=== PATIENT | male | born 1995 | race Caucasian/White ===

== ENCOUNTER 2017-10-06 18:15 | Emergency (ER) | payer OTHER, SELFPAY ==
[2017-10-06 18:17] VITALS: BP 121/89; PULSE 82; RESP 17; TEMP 37.1; O2SAT 100; BMI 24.5
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
[2017-10-06] MEDS: HYDROcodone Bitartrate/Apap 5/325 Tablet PO ×2 (19:39→21:51)
--- NOTE | 2017-10-06 21:06 | ED.RN ---
Addendum entered by Jonh Peralta 10/06/17 21:14: disregard the previous note. patient returned to the room at this time Original Note: patient became upset with the wait and left prior to results coming back. Dr. Thompson made aware.
--- NOTE | 2017-10-06 21:34 | ED.DEP ---
ED Disposition - Plan for ED Patient: Disposition: Home or Assisted Living Chief Complaint: Other, Pain/Inj Instructions: ED Fx Mandible Prescriptions: Hydrocodone Bitart/Apap 5-325 [[place] 5/325] 1 - 2 tablet PO Q4H PRN PRN 4 Days #20 tablet PRN Reason: Pain Referrals: Miquel Ochoa DDS [STAFF PHYSICIAN] - As soon as possible
--- NOTE | 2017-10-06 21:36 | DCINST.ED_ITS ---
ED Disposition - Plan for ED Patient: Disposition: Home or Assisted Living Chief Complaint: Other, Pain/Inj Instructions: ED Fx Mandible Prescriptions: Hydrocodone Bitart/Apap 5-325 [[place] 5/325] 1 - 2 tablet PO Q4H PRN PRN 4 Days # 20 tablet PRN Reason: Pain Referrals: Miquel Ochoa DDS [STAFF PHYSICIAN] - As soon as possible
[2017-10-06 21:50] VITALS: BP 115/70; PULSE 80; RESP 14; O2SAT 99
== END 2017-10-06 21:52 | disposition home or self-care (01) ==
PROVIDERS: Emergency Provider Emergency Medicine
DX: S02.652A Fracture of angle of left mandible, initial encounter for closed fracture (principal); S02.611A Fracture of condylar process of right mandible, initial encounter for closed fracture; W51.XXXA Accidental striking against or bumped into by another person, initial encounter; Y93.9 Activity, unspecified; Y92.9 Unspecified place or not applicable; Y99.9 Unspecified external cause status; Z72.0 Tobacco use
CPT/HCPCS: 70486; 99283